=== PATIENT | male | born 1975 | race Caucasian/White ===

== ENCOUNTER 2022-05-26 14:47 | Emergency (ER) | payer SELFPAY ==
[~2022-05-26] VITALS: Ht 175.2 cm; Wt 67.9 kg
[2022-05-26] MEDS ORDERED: ONDANSETRON 4 MG/2 ML (SDV) Z0FRAN IVP ONE (16:00)
[2022-05-26] MEDS ORDERED: LACTATED RINGERS 1,000 ML IV ONE (16:00)
[2022-05-26] MEDS ORDERED: ONDANSETRON 4 MG/2 ML (SDV) Z0FRAN ONE (16:55)
[2022-05-26 17:04] LABS: BASOPHILS % (AUTO) 0 % (0-10); EOSINOPHILS % (AUTO) 0 % (0-10); HEMATOCRIT 46 % (40-54); HEMOGLOBIN 16.5 g/dL (13.3-17.7); LYMPHOCYTES # (AUTO) 2.2 10^3/uL (1.0-4.0); LYMPHOCYTES % (AUTO) 19 % (12-44); MEAN CORPUSCULAR HEMOGLOBIN 33 pg (25-34); MEAN CORPUSCULAR HGB CONC 36 g/dL (32-36); MEAN CORPUSCULAR VOLUME 92 fL (80-99); MEAN PLATELET VOLUME 9.6 fL (9.0-12.2); MONOCYTES # (AUTO) 0.7 10^3/uL (0.0-1.0); MONOCYTES % (AUTO) 6 % (0-12); NEUTROPHILS # (AUTO) 8.7 10^3/uL (1.8-7.8); NEUTROPHILS % (AUTO) 75 % (42-75); PLATELET COUNT 311 10^3/uL (130-400); WHITE BLOOD COUNT 11.6 10^3/uL (4.3-11.0)
[2022-05-26] MEDS ORDERED: LORazepam 0.5 MG (ATIVAN) TABLET BC STA (17:13)
[2022-05-26 17:26] LABS: ALANINE AMINOTRANSFERASE 27 U/L (0-55); ALKALINE PHOSPHATASE 69 U/L (40-136); BILIRUBIN,TOTAL 1.9 MG/DL (0.1-1.0); BUN/CREATININE RATIO 20; CALCIUM 9.8 MG/DL (8.5-10.1); CARBON DIOXIDE 19 MMOL/L (21-32); CHLORIDE 95 MMOL/L (98-107); CREATININE SERUM 0.76 MG/DL (0.60-1.30); GFR ESTIMATED 113; GLUCOSE 97 MG/DL (70-105); MAGNESIUM 1.8 MG/DL (1.6-2.4); POTASSIUM 3.4 MMOL/L (3.6-5.0); SODIUM 134 MMOL/L (135-145)
[2022-05-26 17:27] LABS: ALBUMIN 4.7 GM/DL (3.2-4.5); LIPASE 16 U/L (8-78); TOTAL PROTEIN 7.6 GM/DL (6.4-8.2)
[2022-05-26] MEDS ORDERED: PROMETHAZINE INJ 25 MG/ML (PHENERGAN) AMP IVP ONE (17:30)
[2022-05-26] MEDS ORDERED: DROPERIDOL 5 MG/2 ML (INAPSINE) ED ONLY! IV ONE (17:45)
[2022-05-26 18:33] LABS: BILIRUBIN,URINE NEGATIVE (NEGATIVE); CLARITY,URINE CLEAR; GLUCOSE, URINE (UA) NEGATIVE (NEGATIVE); KETONES,URINE 3+ (NEGATIVE); LEUKOCYTE ESTERASE ,URINE NEGATIVE (NEGATIVE); NITRITE,URINE NEGATIVE (NEGATIVE); PROTEIN,URINE NEGATIVE (NEGATIVE)
[2022-05-26 18:38] LABS: BACTERIA,URINE NEGATIVE /HPF; COLOR,URINE DARK YELLOW; WBC,URINE 0-2 /HPF
[2022-05-26 18:42] LABS: AMPHETAMINE SCREEN, URINE POSITIVE (NEGATIVE); BARBITURATE SCREEN URINE NEGATIVE (NEGATIVE); BENZODIAZEPINES SCREEN URINE POSITIVE (NEGATIVE); CANNABINOID SCREEN, URINE POSITIVE (NEGATIVE); COCAINE SCREEN URINE NEGATIVE (NEGATIVE); OPIATE SCREEN URINE POSITIVE (NEGATIVE)
[2022-05-26 18:43] LABS: METHADONE STAT NEGATIVE (NEGATIVE); OXYCODONE STAT NEGATIVE (NEGATIVE); PROPOXYPHENE STAT NEGATIVE (NEGATIVE); TRICYCLIC ANTIDEPRESSANTS SCRE NEGATIVE (NEGATIVE)
[2022-05-26] MEDS ORDERED: RX-ONDANSETRON 4 MG ODT (ZOFRAN) PPK #4 SL STA (18:59)
[2022-05-26] MEDS ORDERED: LORazepam 0.5 MG (ATIVAN) TABLET PO STA (18:59)
[2022-05-26] MEDS ORDERED: RX-LORAZEPAM (ATIVAN) 0.5 MG TAB PPK#4 PO STA (18:59)
--- NOTE | 2022-05-26 19:08 | ED General ---
General Chief Complaint: Abdominal/GI Problems Stated Complaint: VOMITING; RT ARM NUMBNESS Nursing Triage Note: Patient c/o Abd. pain with N/V/D that started 2 days ago. Pt. states he has vomited x 4 and denies any diarrhea in last 24 hrs. Pt. denies any blood in his stool or emesis. Pt. denies any fevers. Pt. states he smoked THC 2 days ago. Pt. states he ran out of his Valium x 2 wks ago and states he took this medication for anxiety. Pt. very anxious upon coming back to ER. No active vomiting upon coming back to ER. Source of Information: Patient, Family Exam Limitations: No Limitations History of Present Illness Date Seen by Provider: May 26, 2022 Time Seen by Provider: 15:55 Initial Comments This 47-year-old man presents to the emergency room in distress from anxiety, nausea, and vomiting. He is tearful. He gives a social history of recent infidelity by his causing him to move into his mother's garage and away from [place] where he lived with his . As a consequence he has not had access to his Valium prescription which he states he has not taken in a couple of weeks. He last used marijuana 2 days ago. He denies any other illicit substance use or frequent alcohol use. This morning he woke and started vomiting. He became very anxious and tremulous. He has not had significant abdominal pain. He specifically states that hot baths help his symptoms. He accessed some Xanax a few days ago which she took to help with his anxiety, but he has not had any for several days. He does not have a local provider. He complains about a paresthesia in his right hand without any measurable weakness. This is an intermittent problem but worse today. Sensation and pile driver intact. Allergies and Home Medications Allergies Coded Allergies: No Known Drug Allergies (Unverified , 05/26/22) Patient Home Medication List Home Medication List Reviewed: Yes Diazepam (Valium) 2 Mg Tablet, 2 MG PO Q6H Prescribed by: GRACE NICHOLS on 05/26/221909 Ondansetron (Ondansetron Odt) 4 Mg Tab.rapdis, 4 MG SL Q4H PRN for NAUSEA/VOMITING Prescribed by: GRACE NICHOLS on 05/26/221908 Review of Systems Review of Systems Constitutional: see HPI EENTM: no symptoms reported Respiratory: no symptoms reported Cardiovascular: no symptoms reported Gastrointestinal: see HPI Genitourinary: no symptoms reported Musculoskeletal: no symptoms reported Skin: no symptoms reported Psychiatric/Neurological: See HPI Hematologic/Lymphatic: No Symptoms Reported Immunological/Allergic: no symptoms reported Past Pzzwvzl-Jzhjrn-Ocwlif Hx Patient Social History Tobacco Use?: No Use of E-Cig and/or Vaping dev: No Substance use?: Yes (Benzodiazepine dependence) Substance type: Marijuana Alcohol Use?: Yes Alcohol Frequency: Once in a while Pt feels they are or have been: No Immunizations Up To Date Influenza Vaccine Up-to-Date: No; Not Current Past Medical History Surgeries: Yes Orthopedic (Cervical spine) Respiratory: No Cardiac: No Neurological: No Genitourinary: No Gastrointestinal: No Musculoskeletal: No Endocrine: No HEENT: No Cancer: No Psychosocial: Yes Anxiety, Bipolar Physical Exam Vital Signs Vital Signs - First Documented 05/26/22 15:22 Temp 37.0 Pulse 109 Resp 28 B/P (MAP) 127/89 (102) Pulse Ox 100 O2 Delivery Room Air Capillary Refill : Height, Weight, BMI Height: '" Weight: lbs. oz. kg; 22.00 BMI Method: General Appearance: WD/WN, Moderate Distress (Crying, tremoring, anxious, dry heaving) HEENT: PERRL/EOMI, Normal ENT Inspection, Pharynx Normal Neck: Normal Inspection; No JVD Respiratory: Lungs Clear, Normal Breath Sounds, No Accessory Muscle Use Cardiovascular: Regular Rate, Rhythm, No Edema, No Murmur Gastrointestinal: Normal Bowel Sounds, Non Tender, Soft Extremity: Normal Inspection, No Pedal Edema Neurologic/Psychiatric: Alert, Oriented x3, No Motor/Sensory Deficits, director of accreditation II- XII Norm as Tested, Other (Tremoring, anxious, crying, no focal neurologic deficits, distracted historian, sometimes confused conversation) Skin: Normal Color, Warm/Dry Progress/Results/Core Measures Suspected Sepsis SIRS Temperature: Pulse: 109 Respiratory Rate: 28 Laboratory Tests 05/26/22 16:49: White Blood Count 11.6H Blood Pressure 127 /89 Mean: 102 Laboratory Tests 05/26/22 16:49: Creatinine 0.76, Platelet Count 311, Total Bilirubin 1.9H Results/Orders Lab Results Laboratory Tests Test 05/26/22 16:49 05/26/22 18:20 Range/Units White Blood Count 11.6 H 4.3-11.0 10^3/uL Red Blood Count 4.97 4.30-5.52 10^6/uL Hemoglobin 16.5 13.3-17.7 g/dL Hematocrit 46 40-54 % Mean Corpuscular Volume 92 80-99 fL Mean Corpuscular Hemoglobin 33 25-34 pg Mean Corpuscular Hemoglobin Concent 36 32-36 g/dL Red Cell Distribution Width 13.2 10.0-14.5 % Platelet Count 311 130-400 10^3/uL Mean Platelet Volume 9.6 9.0-12.2 fL Immature Granulocyte % (Auto) 0 % Neutrophils (%) (Auto) 75 42-75 % Lymphocytes (%) (Auto) 19 12-44 % Monocytes (%) (Auto) 6 0-12 % Eosinophils (%) (Auto) 0 0-10 % Basophils (%) (Auto) 0 0-10 % Neutrophils # (Auto) 8.7 H 1.8-7.8 10^3/uL Lymphocytes # (Auto) 2.2 1.0-4.0 10^3/uL Monocytes # (Auto) 0.7 0.0-1.0 10^3/uL Eosinophils # (Auto) 0.0 0.0-0.3 10^3/uL Basophils # (Auto) 0.0 0.0-0.1 10^3/uL Immature Granulocyte # (Auto) 0.0 0.0-0.1 10^3/uL Percent Immature Platelet Fraction 3.2 0.0-7.6 % Sodium Level 134 L 135-145 MMOL/L Potassium Level 3.4 L 3.6-5.0 MMOL/L Chloride Level 95 L 98-107 MMOL/L Carbon Dioxide Level 19 L 21-32 MMOL/L Anion Gap 20 H 5-14 MMOL/L Blood Urea Nitrogen 15 7-18 MG/DL Creatinine 0.76 0.60-1.30 MG/DL Estimat Glomerular Filtration Rate 113 BUN/Creatinine Ratio 20 Glucose Level 97 70-105 MG/DL Calcium Level 9.8 8.5-10.1 MG/DL Corrected Calcium 8.5-10.1 MG/DL Magnesium Level 1.8 1.6-2.4 MG/DL Total Bilirubin 1.9 H 0.1-1.0 MG/DL Aspartate Amino Transf (AST/SGOT) 30 5-34 U/L Alanine Aminotransferase (ALT/SGPT) 27 0-55 U/L Alkaline Phosphatase 69 40-136 U/L C-Reactive Protein < 0.30 <0.50 MG/DL Total Protein 7.6 6.4-8.2 GM/DL Albumin 4.7 H 3.2-4.5 GM/DL Lipase 16 8-78 U/L Serum Alcohol < 10 <10 MG/DL Urine Color DARK YELLOW Urine Clarity CLEAR Urine pH 7.0 5-9 Urine Specific [place] 1.015 L 1.016-1.022 Urine Protein NEGATIVE NEGATIVE Urine Glucose (UA) NEGATIVE NEGATIVE Urine Ketones 3+ H NEGATIVE Urine Nitrite NEGATIVE NEGATIVE Urine Bilirubin NEGATIVE NEGATIVE Urine Urobilinogen 0.2 < = 1.0 MG/DL Urine Leukocyte Esterase NEGATIVE NEGATIVE Urine RBC (Auto) NEGATIVE NEGATIVE Urine RBC NONE /HPF Urine WBC 0-2 /HPF Urine Crystals NONE /LPF Urine Bacteria NEGATIVE /HPF Urine Casts NONE /LPF Urine Mucus MODERATE H /LPF Urine Culture Indicated NO Urine Opiates Screen POSITIVE H NEGATIVE Urine Oxycodone Screen NEGATIVE NEGATIVE Urine Methadone Screen NEGATIVE NEGATIVE Urine Propoxyphene Screen NEGATIVE NEGATIVE Urine Barbiturates Screen NEGATIVE NEGATIVE Ur Tricyclic Antidepressants Screen NEGATIVE NEGATIVE Urine Phencyclidine Screen NEGATIVE NEGATIVE Urine Amphetamines Screen POSITIVE H NEGATIVE Urine Methamphetamines Screen POSITIVE H NEGATIVE Urine Benzodiazepines Screen POSITIVE H NEGATIVE Urine Cocaine Screen NEGATIVE NEGATIVE Urine Cannabinoids Screen POSITIVE H NEGATIVE My Orders Orders - GRACE FRANCISCO MD Cbc With Automated Diff (05/26/22 15:55) Comprehensive Metabolic Panel (05/26/22 15:55) Lipase (05/26/22 15:55) Magnesium (05/26/22 15:55) Ua Culture If Indicated (05/26/22 15:55) Ed Iv/Invasive Line Start (05/26/22 15:55) Lactated Ringers (Lr 1000 Ml Iv Solution (05/26/22 16:00) Ondansetron Injection (Zofran Injectio (05/26/22 16:00) Crp Fs (05/26/22 15:55) Ondansetron Injection (Zofran Injectio (05/26/22 16:55) Lorazepam Tablet (Ativan Tablet) (05/26/22 17:13) Alcohol (05/26/22 17:14) Drug Screen Stat (Urine) (05/26/22 17:14) Ekg Tracing (05/26/22 17:15) Monitor-Rhythm Ecg Trace Only (05/26/22 17:15) Promethazine Injection (Phenergan Injec (05/26/22 17:30) Droperidol Inj (Ed Only) (Inapsine Inj ( (05/26/22 17:45) Rx-Lorazepam (Rx-Ativan) (05/26/22 18:59) Rx-Ondansetron Po (Rx-Zofran Po) (05/26/22 18:59) Lorazepam Tablet (Ativan Tablet) (05/26/22 18:59) Medications Given in ED Vital Signs/I&O 05/26/22 05/26/22 15:22 19:22 Temp 37.0 37.0 Pulse 109 109 Resp 28 28 B/P (MAP) 127/89 (102) 127/89 Pulse Ox 100 100 O2 Delivery Room Air Room Air Capillary Refill : Blood Pressure Mean: 102 Progress Note : Progress Note Patient was initially treated with a liter of LR and Zofran. He had refractory dry heaving after that. Given his history of marijuana use and improvement of symptoms with hot baths, cannabis hyperemesis was considered a likely contributor to his current presentation. Benzodiazepine withdraw was also likely a contributing factor. Patient was treated with Phenergan and droperidol for the nausea and buccal Ativan for the anxiety. He had almost complete resolution of symptoms. Prior to discharge she was given an additional Ativan 0.5 mg orally to help prevent withdraw. Given the evening hours and going into a weekend, take him packets of Zofran and Ativan were provided to prevent withdraw and necessity for further ER visits. See discharge instructions for further discussion. Patient was educated on the causes of his symptoms and proper use of the medications. ECG Initial ECG Impression Date: May 26, 2022 Initial ECG Impression Time: 15:31 Initial ECG Rate: 103 Initial ECG Rhythm: S.Tach Initial ECG Intervals: Normal Initial ECG Impression: Normal Comment Sinus tachycardia with no ST elevation or depression. No abnormal intervals or axis deviation. Departure Impression Primary Impression: Benzodiazepine withdrawal with delirium Additional Impressions: Nausea & vomiting Qualified Codes: R11.2 - Nausea with vomiting, unspecified Polysubstance abuse Agitation Cannabis hyperemesis syndrome concurrent with and due to cannabis abuse Disposition: 01 HOME, SELF-CARE Condition: Improved Departure-Patient Inst. Decision time for Depature: 19:03 Referrals: NO,LOCAL PHYSICIAN (PCP/Family) Primary Care Physician Patient Instructions: ALCOHOL AND SUBSTANCE ABUSE Add. Discharge Instructions: You may use the Ativan provided in the take-home pack through the night to prevent benzodiazepine withdrawal. Space these tablets out as much as you can. Do not take more than 1 tablet every 4 hours. Tomorrow you may fill your prescriptions. Again, space out the Valium is much as possible and do not take more than 1 every 6 hours. These benzodiazepines are being provided specifically for the purpose of tapering off of use. They are not meant to substitute for chronic use, and the ER cannot be a provider for chronic benzodiazepine prescribing. Use the Zofran as prescribed for nausea and vomiting. Follow-up with a primary care provider soon as possible. Return to the ER if you have worsening symptoms despite following instructions. All discharge instructions reviewed with patient and/or family. Voiced understanding. Scripts Diazepam (Valium) 2 Mg Tablet 2 MG PO Q6H, #4 TAB Start with 1 tablet every 6 hours and space out frequency to taper off Prov: GRACE FRANCISCO MD 05/26/22 Ondansetron (Ondansetron Odt) 4 Mg Tab.rapdis 4 MG SL Q4H PRN for NAUSEA/VOMITING, #10 TAB Prov: GRACE FRANCISCO MD 05/26/22 GRACE FRANCISCO MD May 26, 2022 19:08
[2022-05-26] MEDS ORDERED: DIAZ2TAB PO (19:09)
[2022-05-26] MEDS ORDERED: ONDA4TAB11 SL (19:09)
[2022-05-26 19:22] VITALS: BP 127/89
== END 2022-05-26 19:26 | disposition home or self-care (01) ==
LOC: ER FS 14:49
DX: F13.231 Sedative, hypnotic or anxiolytic dependence with withdrawal delirium (principal); F12.188 Cannabis abuse with other cannabis-induced disorder; R11.2 Nausea with vomiting, unspecified; R45.1 Restlessness and agitation; F19.10 Other psychoactive substance abuse, uncomplicated
CPT/HCPCS: 36415; 80053; 80306; 81000; 83690; 83735; 85025; 86141; 93005; 93041; 96361; 96374; 96375; 99284; G0480; 80320